=== PATIENT | male | born 1930 | race Asian ===

== ENCOUNTER 2017-10-28 08:12 | Emergency (ER) | payer OTHER, MEDICAID ==
[~2017-10-28] VITALS: Ht 170.2 cm; Wt 77.1 kg
[2017-10-28 08:19] VITALS: BP_SYST 126
--- NOTE | 2017-10-28 09:19 | NUR ---
Patient to ER bed 8 to gown for evaluation. Side rails up. Report given to Phil OLIVERA.
--- NOTE | 2017-10-28 09:19 | NUR ---
Pt c/o sore throat and cough x 3 days. Pt states that he has been running a fever, but currently afebrile. Denies c/o C/P or SOB, airway patent.
--- NOTE | 2017-10-28 09:25 | NUR ---
Dr. Prather at bedside.
[2017-10-28 10:05] VITALS: BP_SYST 124
--- NOTE | 2017-10-28 10:05 | NUR ---
Patient given written and verbal discharge instructions and verbalizes understanding. ER MD discussed with patient the results and treatment provided. Patient in stable condition. ID arm band removed. Rx of Clindamycin given. Patient educated on pain management and to follow up with PMD. Pain Scale 1/10. Opportunity for questions provided and answered. Medication side effect fact sheet provided.
== END 2017-10-28 10:05 | disposition home or self-care (01) ==
LOC: SED 08:12
DX: J02.9 Acute pharyngitis, unspecified (principal); R50.9 Fever, unspecified; E78.5 Hyperlipidemia, unspecified; Z88.0 Allergy status to penicillin
CPT/HCPCS: 99283

== ENCOUNTER 2018-02-22 09:56 | Emergency (ER) | payer OTHER, MEDICAID ==
[~2018-02-22] VITALS: Ht 170.2 cm; Wt 78.0 kg
[2018-02-22 09:56] VITALS: BP_SYST 137
[2018-02-22] MEDS ORDERED: KETOROLAC TROMETHAMINE 60 MG/2 ML VIAL IM ONE (10:15)
[2018-02-22 11:21] VITALS: BP_SYST 133
== END 2018-02-22 11:19 | disposition home or self-care (01) ==
LOC: SED 09:56
DX: M54.31 Sciatica, right side (principal); K21.9 Gastro-esophageal reflux disease without esophagitis; R03.0 Elevated blood-pressure reading, without diagnosis of hypertension; E78.5 Hyperlipidemia, unspecified; Z88.0 Allergy status to penicillin
CPT/HCPCS: 73502; 99283; J1885

== ENCOUNTER 2019-03-27 12:13 | Emergency (ER) | payer OTHER, MEDICAID ==
[~2019-03-27] VITALS: Ht 170.2 cm; Wt 78.5 kg
[2019-03-27 12:13] VITALS: BP_SYST 136
--- NOTE | 2019-03-27 13:00 | NUR ---
Patient to ER bed 1 to gown for evaluation. Side rails up.
--- NOTE | 2019-03-27 13:05 | NUR ---
pt arrives from home w/ c/o increasing cough for 1 week. pt has been taking over the counter meds w/ no relief
--- NOTE | 2019-03-27 13:10 | NUR ---
flu swab collected and sent to the lab
--- NOTE | 2019-03-27 13:21 | NUR ---
ER at bedside examining patient.
[2019-03-27] MEDS ORDERED: KETOROLAC TROMETHAMINE 30 MG VIAL IM ONE (13:45)
[2019-03-27] MEDS ORDERED: LORazepam 1 MG TABLET PO ONE (13:45)
--- NOTE | 2019-03-27 14:30 | NUR ---
Patient transported to radiology via gurney, accompanied by radiology tech.
[2019-03-27 14:40] LABS: BASOPHILS % (AUTO) 0.8 % (0.0-2.0); EOSINOPHILS # (AUTO) 0.5 K/uL (0.0-0.4); EOSINOPHILS % (AUTO) 8.6 % (0.0-4.0); HEMATOCRIT 38.9 % (36-54); HEMOGLOBIN 12.8 g/dL (14.0-18.0); LYMPHOCYTES # (AUTO) 2.2 K/uL (1.0-5.5); LYMPHOCYTES % (AUTO) 34.4 % (20.5-51.5); MEAN CORPUSCULAR HEMOGLOBIN 32 pg (27-31); MEAN CORPUSCULAR HGB CONC 33 % (32-36); MEAN CORPUSCULAR VOLUME 97 fL (79.0-98.0); MONOCYTES # (AUTO) 0.7 K/uL (0.0-1.0); MONOCYTES % (AUTO) 10.9 % (1.7-9.3); NEUTROPHILS # (AUTO) 2.9 K/uL (1.8-7.7); NEUTROPHILS % (AUTO) 45.3 % (40.0-70.0); PLATELET COUNT (AUTO) 133 K/uL (130-430); RED CELL DISTRIBUTION WIDTH 13.2 % (9.0-15.0); WHITE BLOOD COUNT (AUTO) 6.4 K/uL (4.8-10.8)
[2019-03-27 14:56] LABS: ANION GAP 7 (5-15); CALCIUM 8.6 mg/dL (8.4-11.0); CHLORIDE 104 mmol/L (98-107); CREATININE 1.55 mg/dL (0.55-1.30); GLUCOSE 104 mg/dL (70-99); POTASSIUM 4.1 mmol/L (3.5-5.1); SODIUM SERUM 138 mmol/L (136-145); UREA NITROGEN, BLOOD 42 mg/dL (8-21)
[2019-03-27 14:57] LABS: PROTHROMBIN TIME 9.9 SECS (9.5-12.5)
[2019-03-27 15:10] LABS: ALANINE AMINOTRANSFERASE 33 U/L (12-78); ALBUMIN 3.5 g/dL (3.4-4.8); ASPARTATE AMINOTRANSFERASE 25 U/L (10-37); TOTAL BILIRUBIN 0.4 mg/dL (0.0-1.0)
[2019-03-27 15:38] VITALS: BP_SYST 116
--- NOTE | 2019-03-27 15:39 | NUR ---
Patient given written and verbal discharge instructions and verbalizes understanding. ER MD discussed with patient the results and treatment provided. Patient in stable condition. ID arm band removed. Rx of [place] and Motrin given. Patient educated on pain management and to follow up with PMD. Pain Scale 0/10. Opportunity for questions provided and answered. Medication side effect fact sheet provided.
== END 2019-03-27 15:39 | disposition home or self-care (01) ==
LOC: SED 12:13
DX: M46.92 Unspecified inflammatory spondylopathy, cervical region (principal); K21.9 Gastro-esophageal reflux disease without esophagitis; E78.5 Hyperlipidemia, unspecified; M48.02 Spinal stenosis, cervical region; Z88.0 Allergy status to penicillin
CPT/HCPCS: 36415; 72125; 80053; 85025; 85610; 85730; 96372; 99284; J1885

== ENCOUNTER 2020-10-31 15:04 | Emergency (ER) | payer OTHER, MEDICAID ==
[~2020-10-31] VITALS: Ht 170.2 cm; Wt 79.4 kg
[2020-10-31 15:05] VITALS: BP_SYST 139
--- NOTE | 2020-10-31 15:23 | NUR ---
Pt came into ER with complaintof left hip pain 01/09 X2days pt denies any fall or trauma. Pt came in walking with cane. AAOX4 speaking full sentences resting in gurney no distress noted at time. Pt reports indescribable pain that hurts more when he is standing. VSS
--- NOTE | 2020-10-31 15:35 | NUR ---
DR STEVENS IN TO ASSESS
--- NOTE | 2020-10-31 15:40 | NUR ---
SITTING UP ALERT, NO DISTRESS, SKIN WARM AND DRY. CLEAR MENTATION AND SPEECH
[2020-10-31] MEDS ORDERED: KETOROLAC TROMETHAMINE 30 MG VIAL IM ONE (15:45)
[2020-10-31] MEDS ORDERED: HYDROcodone/ACETAMIN 5-325 MG TAB (NORCO/ VICODIN) PO ONE (15:45)
--- NOTE | 2020-10-31 16:06 | NUR ---
Patient transported to radiology via WHEELCHAIR, accompanied by TECH.
[2020-10-31 16:11] LABS: BASOPHILS # (AUTO) 0.1 K/uL (0.0-0.2); EOSINOPHILS # (AUTO) 0.6 K/uL (0.0-0.4); EOSINOPHILS % (AUTO) 8.5 % (0.0-4.0); HEMATOCRIT 36.7 % (36-54); HEMOGLOBIN 12.1 g/dL (14.0-18.0); LYMPHOCYTES # (AUTO) 2.5 K/uL (1.0-5.5); LYMPHOCYTES % (AUTO) 34.3 % (20.5-51.5); MEAN CORPUSCULAR HEMOGLOBIN 32 pg (27-31); MEAN CORPUSCULAR HGB CONC 33 % (32-36); MEAN CORPUSCULAR VOLUME 97 fL (79.0-98.0); MONOCYTES # (AUTO) 0.7 K/uL (0.0-1.0); MONOCYTES % (AUTO) 9.5 % (1.7-9.3); NEUTROPHILS # (AUTO) 3.4 K/uL (1.8-7.7); NEUTROPHILS % (AUTO) 46.7 % (40.0-70.0); PLATELET COUNT (AUTO) 174 K/uL (130-430); RED CELL DISTRIBUTION WIDTH 13.5 % (9.0-15.0); WHITE BLOOD COUNT (AUTO) 7.4 K/uL (4.8-10.8)
[2020-10-31 16:26] LABS: C-REACTIVE PROTEIN QUANT < 0.2 mg/dL (0-0.5)
[2020-10-31 16:34] LABS: ALANINE AMINOTRANSFERASE 25 U/L (12-78); ANION GAP 10 (5-15); ASPARTATE AMINOTRANSFERASE 26 U/L (10-37); CHLORIDE 106 mmol/L (98-107); CREATININE 1.99 mg/dL (0.55-1.30); GLUCOSE 114 mg/dL (70-99); POTASSIUM 4.7 mmol/L (3.5-5.1); SODIUM SERUM 139 mmol/L (136-145); TOTAL BILIRUBIN 0.5 mg/dL (0.0-1.0); UREA NITROGEN, BLOOD 37 mg/dL (8-21)
[2020-10-31 16:35] LABS: ALBUMIN 3.5 g/dL (3.4-4.8); URIC ACID 6.8 mg/dL (2.4-7.0)
--- NOTE | 2020-10-31 16:45 | NUR ---
Pt resting in [facility] no distress noted at this time. VSS
[2020-10-31 16:49] LABS: PROTHROMBIN TIME 10.1 SECS (9.5-12.5)
[2020-10-31] MEDS ORDERED: HYDR-3917 PO (16:58)
[2020-10-31] MEDS ORDERED: IBUP-1969 PO (16:58)
[2020-10-31 17:18] LABS: ERYTHROCYTE SEDIMENTATION RATE 15 MM/HR (0-15)
[2020-10-31 17:23] VITALS: BP_SYST 139
--- NOTE | 2020-10-31 17:24 | NUR ---
Patient given written and verbal discharge instructions and verbalizes understanding. ER MD discussed with patient the results and treatment provided. Patient in stable condition. ID arm band removed. Rx of motrin and norco given. Patient educated on pain management and to follow up with PMD. Pain Scale 2/10. Opportunity for questions provided and answered. Medication side effect fact sheet provided.
== END 2020-10-31 17:24 | disposition home or self-care (01) ==
LOC: SED 15:04
DX: M16.12 Unilateral primary osteoarthritis, left hip (principal); K21.9 Gastro-esophageal reflux disease without esophagitis; Z88.0 Allergy status to penicillin; Z79.899 Other long term (current) drug therapy
CPT/HCPCS: 36415; 73502; 80053; 84550; 85025; 85610; 85651; 85730; 86140; 96372; 99284; J1885

== ENCOUNTER 2021-08-07 22:24 | Observation (INO) | payer BC, MEDICAID ==
[~2021-08-07] VITALS: Ht 170.2 cm; Wt 79.8 kg
[~2021-08-07 22:24] MED LIST: HYDR-3917 PO; IBUP-1969 PO
[2021-08-07 22:59] VITALS: BP_SYST 119
[2021-08-07 23:40] LABS: BASOPHILS % (AUTO) 0.7 % (0.0-2.0); EOSINOPHILS # (AUTO) 0.8 K/uL (0.0-0.4); EOSINOPHILS % (AUTO) 12.1 % (0.0-4.0); HEMATOCRIT 31.7 % (36-54); HEMOGLOBIN 10.4 g/dL (14.0-18.0); LYMPHOCYTES # (AUTO) 1.1 K/uL (1.0-5.5); LYMPHOCYTES % (AUTO) 16.5 % (20.5-51.5); MEAN CORPUSCULAR HEMOGLOBIN 31 pg (27-31); MEAN CORPUSCULAR HGB CONC 33 % (32-36); MEAN CORPUSCULAR VOLUME 94 fL (79.0-98.0); MONOCYTES # (AUTO) 0.8 K/uL (0.0-1.0); MONOCYTES % (AUTO) 12.2 % (1.7-9.3); NEUTROPHILS % (AUTO) 58.5 % (40.0-70.0); PLATELET COUNT (AUTO) 146 K/uL (130-430); RED BLOOD CELL COUNT(AUTO) 3.39 MIL/uL (4.2-6.2); RED CELL DISTRIBUTION WIDTH 13.8 % (9.0-15.0); WHITE BLOOD COUNT (AUTO) 6.8 K/uL (4.8-10.8)
[2021-08-07 23:55] LABS: ANION GAP 7 (5-15); CALCIUM 8.6 mg/dL (8.4-11.0); CHLORIDE 105 mmol/L (98-107); CREATININE 1.88 mg/dL (0.55-1.30); GLUCOSE 138 mg/dL (70-99); POTASSIUM 4.2 mmol/L (3.5-5.1); SODIUM SERUM 133 mmol/L (136-145); UREA NITROGEN, BLOOD 37 mg/dL (8-21)
[2021-08-08 00:01] LABS: ALANINE AMINOTRANSFERASE 15 U/L (12-78); ASPARTATE AMINOTRANSFERASE 20 U/L (10-37); TOTAL BILIRUBIN 0.3 mg/dL (0.0-1.0)
[2021-08-08 01:30] LABS: BILIRUBIN,URINE NEGATIVE (NEGATIVE); BLOOD, URINE NEGATIVE (NEGATIVE); CLARITY/URINE CLEAR (CLEAR); COLOR,URINE YELLOW (YELLOW); GLUCOSE,URINE NEGATIVE (NEGATIVE); KETONES,URINE NEGATIVE (NEGATIVE); LEUKOCYTE ESTERASE ,URINE NEGATIVE (NEGATIVE); NITRITE, URINE NEGATIVE (NEGATIVE); PH,URINE 5.5 (5.0-8.0); PROTEIN URINE NEGATIVE (NEGATIVE); UROBILINOGEN,URINE 0.2 (0.2-1.0)
[2021-08-08] MEDS ORDERED: PRED20TA PO ×2 (03:48)
[2021-08-08] MEDS ORDERED: HYDR-3917 PO (03:48)
[2021-08-08] MEDS ORDERED: CYCL10TA24 PO ×2 (03:48)
[2021-08-08] MEDS ORDERED: LYR50 PO (07:42)
[2021-08-08] MEDS ORDERED: ALLO100T PO (07:42)
[2021-08-08] MEDS ORDERED: FURO-149 PO (07:42)
[2021-08-08 09:06] VITALS: BP_SYST 122
[2021-08-08 12:00] VITALS: BP_SYST 125
[2021-08-08] MEDS ORDERED: IBUPROFEN 600 MG TABLET PO PRN (16:15)
[2021-08-08 16:29] VITALS: BP_SYST 123
[2021-08-08 20:00] VITALS: BP_SYST 118
[2021-08-08] MEDS ORDERED: ALLOPURINOL 100 MG TABLET (ZYLOPRIM) PO SCH (21:00)
[2021-08-08] MEDS ORDERED: ENOXAPARIN SODIUM 30 MG/0.3 ML SYRINGE SUBCUT SCH (21:00)
[2021-08-08] MEDS: PREGABALIN 25 MG CAPSULE (LYRICA) PO SCH (21:04)
[2021-08-09] MEDS: 0.45% NACL 1,000 ML IV SCH ×2 (00:08→05:35)
[2021-08-09 01:33] VITALS: BP_SYST 135
[2021-08-09 06:05] LABS: BASOPHILS % (AUTO) 0.4 % (0.0-2.0); EOSINOPHILS # (AUTO) 0.9 K/uL (0.0-0.4); HEMATOCRIT 33.9 % (36-54); HEMOGLOBIN 11.1 g/dL (14.0-18.0); LYMPHOCYTES # (AUTO) 1.3 K/uL (1.0-5.5); LYMPHOCYTES % (AUTO) 17.7 % (20.5-51.5); MEAN CORPUSCULAR HEMOGLOBIN 31 pg (27-31); MEAN CORPUSCULAR HGB CONC 33 % (32-36); MEAN CORPUSCULAR VOLUME 94 fL (79.0-98.0); MONOCYTES # (AUTO) 0.9 K/uL (0.0-1.0); NEUTROPHILS # (AUTO) 4.4 K/uL (1.8-7.7); NEUTROPHILS % (AUTO) 57.9 % (40.0-70.0); PLATELET COUNT (AUTO) 141 K/uL (130-430); RED CELL DISTRIBUTION WIDTH 13.9 % (9.0-15.0); WHITE BLOOD COUNT (AUTO) 7.6 K/uL (4.8-10.8)
[2021-08-09 06:21] LABS: ANION GAP 8 (5-15); CHLORIDE 103 mmol/L (98-107); CREATININE 1.69 mg/dL (0.55-1.30); GLUCOSE 110 mg/dL (70-99); POTASSIUM 3.8 mmol/L (3.5-5.1); SODIUM SERUM 134 mmol/L (136-145); UREA NITROGEN, BLOOD 27 mg/dL (8-21)
[2021-08-09 07:01] LABS: TOTAL IRON BIND. CAPACITY 174 ug/dL (250-450)
[2021-08-09 08:00] VITALS: BP_SYST 128
[2021-08-09] MEDS: PREGABALIN 25 MG CAPSULE (LYRICA) PO SCH (09:00)
[2021-08-09 14:44] VITALS: BP_SYST 116
[2021-08-09 16:00] VITALS: BP_SYST 104
[2021-08-09 19:41] VITALS: BP_SYST 95
[2021-08-09 19:47] VITALS: BP_SYST 95
[2021-08-10 08:06] LABS: FOLATE (FOLIC ACID) >20.0 ng/mL (>3.0)
[2021-08-15 11:52] LABS: FERRITIN 820 ng/mL (30-400)
== END 2021-08-09 20:10 | disposition home or self-care (01) ==
LOC: SED 22:24 → SMU 08-08 05:19
PROVIDERS: ADMIT Family Medicine; ATTEND Family Medicine
DX: M54.9 Dorsalgia, unspecified (principal); Z20.822 Contact with and (suspected) exposure to COVID-19; R53.1 Weakness; M48.00 Spinal stenosis, site unspecified; E86.0 Dehydration; N17.9 Acute kidney failure, unspecified; D50.9 Iron deficiency anemia, unspecified; I10 Essential (primary) hypertension; E78.5 Hyperlipidemia, unspecified; K21.9 Gastro-esophageal reflux disease without esophagitis; M10.9 Gout, unspecified; R51.9 Headache, unspecified; Z88.0 Allergy status to penicillin; Z79.899 Other long term (current) drug therapy
CPT/HCPCS: 36415 ×3; 70450; 72125; 72131; 72148; 76376; 80048; 80053; 81003; 82607; 82728; 82746; 83540; 83550; 83735; 85025 ×2; 87426; 93005; 96360; 96361; 96372; 97116; 97162; 97530; 99285; G0378 ×2; J1650

== ENCOUNTER 2022-03-21 21:40 | Emergency (ER) | payer BC, MEDICAID ==
[~2022-03-21] VITALS: Ht 170.2 cm; Wt 79.4 kg
[~2022-03-21 21:40] MED LIST changes: +ALLO100T PO; -HYDR-3917 PO; +LYR50 PO
[2022-03-21 22:21] VITALS: BP_SYST 129
[2022-03-22] MEDS ORDERED: METOCLOPRAMIDE HCL 10 MG/2 ML VIAL IVP ONE
[2022-03-22] MEDS ORDERED: NS 500 ML IV ONE
[2022-03-22] MEDS ORDERED: KETOROLAC TROMETHAMINE 30 MG VIAL IVP ONE
[2022-03-22] MEDS ORDERED: DIPHENHYDRAMINE INJ 50 MG/ML VIAL IVP ONE
[2022-03-22 01:11] VITALS: BP_SYST 115
== END 2022-03-22 01:10 | disposition home or self-care (01) ==
LOC: SED 21:40
DX: G44.009 Cluster headache syndrome, unspecified, not intractable (principal); Z79.899 Other long term (current) drug therapy
CPT/HCPCS: 99284; 70450; 76376; 96374; 96375; 96361; J1200; J1885; J2765; J7040; J7030

== ENCOUNTER 2022-05-06 09:32 | Emergency (ER) | payer BC, MEDICAID ==
[~2022-05-06] VITALS: Ht 167.6 cm; Wt 72.6 kg
[2022-05-06] MEDS ORDERED: OLOP2.5D11 OP (10:09)
--- NOTE | 2022-05-06 10:12 | NUR ---
Patient to ER bed TRIAGE to gown for evaluation. Side rails up.
--- NOTE | 2022-05-06 10:13 | NUR ---
ER at bedside examining patient.
--- NOTE | 2022-05-06 10:15 | NUR ---
Patient given written and verbal discharge instructions and verbalizes understanding. ER MD discussed with patient the results and treatment provided. Patient in stable condition. ID arm band removed. Rx of EYE DROP given. Patient educated on pain management and to follow up with PMD. Pain Scale 0. Opportunity for questions provided and answered. Medication side effect fact sheet provided.
== END 2022-05-06 10:15 | disposition home or self-care (01) ==
LOC: SED 09:32
DX: H10.13 Acute atopic conjunctivitis, bilateral (principal); K21.9 Gastro-esophageal reflux disease without esophagitis; I10 Essential (primary) hypertension; Z88.0 Allergy status to penicillin; Z79.899 Other long term (current) drug therapy
CPT/HCPCS: 99281

== ENCOUNTER 2022-07-11 17:36 | Emergency (ER) | payer BC, MEDICAID ==
[~2022-07-11] VITALS: Ht 170.2 cm; Wt 79.4 kg
[~2022-07-11 17:36] MED LIST changes: +OLOP2.5D11 OP
[2022-07-11 17:39] VITALS: BP_SYST 121
--- NOTE | 2022-07-11 17:42 | NUR ---
Patient to ER bed 6 to gown for evaluation. Side rails up. Report given to James OLIVERA.
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
--- NOTE | 2022-07-11 18:05 | NUR ---
MD DR CHILDRESS AT BEDSIDE
[2022-07-11 18:33] LABS: BASOPHILS # (AUTO) 0.1 K/uL (0.0-0.2); BASOPHILS % (AUTO) 0.8 % (0.0-2.0); EOSINOPHILS # (AUTO) 0.3 K/uL (0.0-0.4); EOSINOPHILS % (AUTO) 2.4 % (0.0-4.0); HEMATOCRIT 36.2 % (36-54); HEMOGLOBIN 12.1 g/dL (14.0-18.0); LYMPHOCYTES # (AUTO) 2.6 K/uL (1.0-5.5); LYMPHOCYTES % (AUTO) 24.8 % (20.5-51.5); MEAN CORPUSCULAR HEMOGLOBIN 32 pg (27-31); MEAN CORPUSCULAR HGB CONC 33 % (32-36); MEAN CORPUSCULAR VOLUME 95 fL (79.0-98.0); MONOCYTES # (AUTO) 1.4 K/uL (0.0-1.0); MONOCYTES % (AUTO) 13.7 % (1.7-9.3); NEUTROPHILS # (AUTO) 6.1 K/uL (1.8-7.7); NEUTROPHILS % (AUTO) 58.3 % (40.0-70.0); PLATELET COUNT (AUTO) 123 K/uL (130-430); RED BLOOD CELL COUNT(AUTO) 3.83 MIL/uL (4.2-6.2); RED CELL DISTRIBUTION WIDTH 12.8 % (9.0-15.0); WHITE BLOOD COUNT (AUTO) 10.4 K/uL (4.8-10.8)
[2022-07-11 18:47] LABS: ANION GAP 6 (5-15); CALCIUM 8.5 mg/dL (8.4-11.0); CHLORIDE 102 mmol/L (98-107); CREATININE 1.79 mg/dL (0.55-1.30); GLUCOSE 126 mg/dL (70-99); UREA NITROGEN, BLOOD 28 mg/dL (8-21)
[2022-07-11 18:56] LABS: ALBUMIN 3.3 g/dL (3.4-4.8); ASPARTATE AMINOTRANSFERASE 19 U/L (10-37); TOTAL BILIRUBIN 0.7 mg/dL (0.0-1.0)
[2022-07-11 19:04] LABS: ALANINE AMINOTRANSFERASE 23 U/L (12-78)
--- NOTE | 2022-07-11 19:33 | NUR ---
REPORT GIVEN TO SUNNY OLIVERA, PT BERTIN.
[2022-07-11 19:58] VITALS: BP_SYST 113
--- NOTE | 2022-07-11 19:59 | NUR ---
Patient given written and verbal discharge instructions and verbalizes understanding. ER MD discussed with patient the results and treatment provided. Patient in stable condition. ID arm band removed. IV catheter removed intact and dressing applied, no active bleeding. Rx given. Patient educated on pain management and to follow up with PMD. Pain Scale 0. Opportunity for questions provided and answered. Medication side effect fact sheet provided.
== END 2022-07-11 19:58 | disposition home or self-care (01) ==
LOC: SED 17:36
DX: G45.9 Transient cerebral ischemic attack, unspecified (principal); R53.1 Weakness; R47.81 Slurred speech; R20.2 Paresthesia of skin; K21.9 Gastro-esophageal reflux disease without esophagitis; I10 Essential (primary) hypertension; E78.5 Hyperlipidemia, unspecified; Z88.0 Allergy status to penicillin; Z79.899 Other long term (current) drug therapy
CPT/HCPCS: 36415; 70450-TC; 76376; 80053; 83605; 83880; 84484; 85025; 87040; 93005; 99284